=== PATIENT | female | born 1935 | race Caucasian/White ===

== ENCOUNTER 2016-06-24 22:27 | Inpatient (IN) | payer OTHER ==
--- NOTE | 2016-06-24 23:02 | PDOC ---
History of Present Illness - General History Source: Family Exam Limitations: No Limitations - History of Present Illness Initial Comments: 06/24/16 23:48 The patient is a 81 year old female, with significant past medical history of Parkinsons disease, HTN, HLD, who presents today via EMS with her daughter with a facial injury and hematoma on the forehead. The patient fell 2 days ago while sitting at the dinner table. The patient has a right black eye, hematoma on the right forehead, and the right side of the face is swollen. The patient lives at home with her who called the daughter when the patient fell. However, the daughter did not know the severity of the fall until she visited her mother today. She states that the mother is also complaining of some right leg pain. After the fall, the patient has not been mobile, however, the daughter is unsure if this is due to the injury or Parkinson's. Allergies: None reported PCP- <Beatrice Perez - Last Filed: 06/25/16 01:47> <Angel Garcia - Last Filed: 06/25/16 02:41> - General Chief Complaint: Injury Stated Complaint: INJURY Time Seen by Provider: 06/24/16 22:59 Past History <eBatrice Perez - Last Filed: 06/25/16 01:47> - Past Medical History HTN: Yes Hypercholesterolemia: Yes Psychiatric Problems: (PARKINSONS) - Psycho/Social/Smoking Cessation Hx Anxiety: No Suicidal Ideation: No Smoking Status: No Smoking History: Never smoked Number of Cigarettes Smoked Daily: 0 Hx Alcohol Use: No Drug/Substance Use Hx: No Substance Use Type: None Hx Substance Use Treatment: No <Angel Garcia - Last Filed: 06/25/16 02:41> - Past Medical History Allergies/Adverse Reactions: Allergies Allergy/AdvReac Type Severity Reaction Status Date / Time No Known Allergies Allergy Verified 12/15/13 12:25 Home Medications: Ambulatory Orders Lisinopril [Prinivil] 10 mg PO DAILY 08/13/12 Lovastatin 1 tab PO DAILY 08/14/12 Solifenacin Succinate [Vesicare] 10 mg PO DAILY 08/14/12 Acetaminophen [Tylenol .Regular Strength -] 650 mg PO Q6H PRN #0 tablet Carbidopa/Levodopa 10/100 [Sinemet 10/100 -] 1 each PO TID #0 tablet 08/17/12 Mupirocin Cream [Bactroban 2% Cream -] 1 applic TP DAILY 12/15/13 Amoxicillin/Potassium Clav [Augmentin 875-125 Tablet] 1 each PO BID #10 tablet 12/18/13 Review of Systems - Review of Systems Able to Perform ROS?: Yes Comments:: 06/24/16 23:49 CONSTITUTIONAL: No fever, no chills, no fatigue EYES: No visual changes ENT: No ear pain, no sore throat HEAD: + right sided facial swelling, right black eye, hematoma on the forehead. CARDIOVASCULAR: No chest pain, no palpitations RESPIRATORY: No cough, no SOB GI: No abdominal pain, no nausea, no vomiting, no constipation, no diarrhea GENITOURINARY: No dysuria, no frequency, no hematuria MUSKULOSKELETAL: +right leg pain. No backpain, no joint pain, no myalgias SKIN: No rash NEURO: No headache <Beatrice Perez - Last Filed: 06/25/16 01:47> *Physical Exam - Vital Signs Last Vital Signs Temp Pulse Resp BP Pulse Ox 98.7 F 108 H 24 152/68 98 06/24/16 22:42 06/24/16 22:42 06/24/16 22:42 06/24/16 22:42 06/24/16 22:42 <Beatrice Perez - Last Filed: 06/25/16 01:47> - Vital Signs Last Vital Signs Temp Pulse Resp BP Pulse Ox 98.7 F 108 H 24 152/68 98 06/24/16 22:42 06/24/16 22:42 06/24/16 22:42 06/24/16 22:42 06/24/16 22:42 - Physical Exam Comments: 06/25/16 02:39 EXAMINATION CONSTITUTIONAL: Awake and alert, frail-appearing, in mild to moderate distress HEAD: Extensive ecchymosis to the right side of the forehead, face with a 2 cm right frontal hematoma; no crepitus or step-offs EYES: PERRL; EOM intact ENMT: External appears normal; mm-dry NECK: Supple; non-tender; no cervical lymphadenopathy CARD: Normal S1, S2; no murmurs, rubs, or gallops RESP: Normal chest excursion with respiration; breath sounds clear and equal bilaterally; no wheezes, rhonchi, or rales ABD: Soft, non-distended; non-tender; no palpable organomegaly, no palpable hernias PELVIS: stable EXT: No obvious deformity; there is pain on internal and external rotation of the right hip; neurovascularly intact distally bilaterally; gait-unable to bear weight; + rigidity bilaterally to upper and lower extremities SKIN: Warm, dry, no rash NEURO: Awake alert, follows simple commands; gait-deferred. <Angel Garcia - Last Filed: 06/25/16 02:41> ED Treatment Course - LABORATORY CBC & Chemistry Diagram: 06/24/16 23:34 06/24/16 23:34 - RADIOLOGY Radiograph Interpretation: 06/25/16 01:47 Exam: CT cervical spine without contrast Images: [id number] Clinical indication: Status post fall with right-sided hematoma. Findings: Osteopenia and mild spondylosis is noted. The vertebral body heights are maintained. Mild degenerative disc space narrowing is noted at multiple levels. Anatomic alignment of the cervical spine is maintained. No fracture or listhesis is seen. No adenopathy collection or hematoma seen in the soft tissues of the neck. Impression: No fracture or listhesis seen. Exam: Noncontrast CT head Images: 421 Clinical indication: Status post fall with right-sided hematoma. Reformatted coronal and sagittal images were provided. Findings: Multiple axial images were obtained of the brain without contrast. There is no mass-effect, midline shift or hemorrhage. There is no intra-axial or extra-axial fluid collection. Atrophic involutional changes and chronic ischemic periventricular white matter changes are noted. The visualized portions of the paranasal sinuses are clear. The middle ear cavities and mastoids are clear. A right temporal subcutaneous hematoma measures up to 12 mm in depth and 2.5 cm in diameter. No calvarial fractures seen. Impression: No mass effect or intracranial hemorrhage. <Beatrice Perez - Last Filed: 06/25/16 01:47> - LABORATORY CBC & Chemistry Diagram: 06/24/16 23:34 06/24/16 23:34 <Angel Garcia - Last Filed: 06/25/16 02:41> *DC/Admit/Observation/Transfer - Attestations Scribe Attestion: 01/19/17 23:50 Documentation prepared by SRIRAM Lloyd, acting as medical library assistant for Angel Garcia MD. <Beatrice Perez - Last Filed: 06/25/16 01:47> - Discharge Dispostion Admit: Yes - Attestations Physician Attestion: 06/25/16 02:36 The documentation was prepared by the scribe under my direct supervision. I have reviewed the documentation which correctly represents the findings, medical decision-making and critical action taken by me. <Angel Garcia - Last Filed: 06/25/16 02:41> Diagnosis at time of Disposition: Dehydration Acute head trauma Qualifiers: Encounter type: initial encounter Qualified Code(s): S09.90XA - Unspecified injury of head, initial encounter Closed fracture of single pubic ramus of pelvis Qualifiers: Encounter type: initial encounter Laterality: right Qualified Code(s): S32.501A - Unspecified fracture of right pubis, initial encounter for closed fracture - Referrals Referrals: Evan Adorno MD [Primary Care Provider] -
[2016-06-24 23:50] LABS: BASOPHIL 0.3 % (0-2.0); EOSINOPHIL 0.1 % (0-4.5); MCH 30.4 pg (25.7-33.7); MEAN PLT VOLUME 9.3 fl (7.5-11.1); NEUTROPHILS 83.9 % (42.8-82.8); PLATELET COUNT 295 K/MM3 (134-434); RDW 13.1 % (11.6-15.6); WHITE BLOOD COUNT 9.8 K/mm3 (4.0-10.0)
[2016-06-25 00:18] LABS: ALBUMIN 3.7 g/dl (3.4-5.0); ANION GAP 12 (8-16); BILIRUBIN,TOTAL 0.9 mg/dL (0.2-1.0); CO2 29 mmol/L (21-32); CREATININE 0.8 mg/dL (0.55-1.02); GLUCOSE,RANDOM 134 mg/dL (74-106); SGOT/AST 34 U/L (15-37); SGPT/ALT 18 U/L (12-78); TOT PROT 7.5 g/dl (6.4-8.2)
[2016-06-25 00:21] LABS: ALK PHOS 91 U/L (45-117)
[2016-06-25 00:30] LABS: TROPONIN I < 0.02 ng/ml (0.00-0.05)
[2016-06-25 00:43] LABS: INR 1.16 (0.82-1.09); PROTHROMBIN TIME (PATIENT) 12.8 SEC (9.98-11.88)
[2016-06-25] MEDS ORDERED: SODIUM CHLORIDE 500 ML IV STA (01:57)
[2016-06-25] MEDS ORDERED: ACETAMINOPHEN 1000 MG/100 ML VIAL (NON FORMULARY) IVPB ONE (02:10)
--- NOTE | 2016-06-25 02:28 | HP ---
CHIEF COMPLAINT: s/p mechanical fall PCP: Dr. Adorno HISTORY OF PRESENT ILLNESS: Unobtainable from the patient, took history from patients daughter Kat Moctezuma. 81 year old female was brought in to the ED via EMS with facial hematoma and hematoma s/p mechanical fall. As per patients daughter, patient was eating dinner 2 days ago, when her heard a loud sound, and found patient lying on the floor. Patients thinks she hit her face over the stove. She didn' t visit her primary doctor or seek medical attention right away. No h/o LOC, dizziness post fall. Today when patients daughter visited her, saw the ecchymosis on the right side of the face, patient complained of excruciating pain over the right hip, radiating towards the right leg. Daughter called 911 immediately and brought her here. Patient has been frail since 5 years, due to parkinsons disease she has decreased doing her daily activities on her own, needs help to sit/walk. Today, had to help her eat. No H/o intake of aspirin or any blood thinners. At baseline, non conversational, replies to questions asked but speaks very little. Mostly remains drowsy at baseline. On questioning, patient was moaning in pain, hence didn't reply, detailed ROS couldn't be obtained. Lives with her . ER course was notable for: (1) CBC, CMP (2) CXR, Head CT, Hip/Pelvis xray, Cervical CT (3) Recent Travel: None PAST MEDICAL HISTORY: Parkinsons disease, Hypertension, Hyperlipidemia PAST SURGICAL HISTORY: Unknown Social History: Smoking: Never smoked Alcohol: Never took alcohol Drugs: No illicit drug use Family History: Allergies No Known Allergies Allergy (Verified 12/15/13 12:25) HOME MEDICATIONS: Medication Instructions Recorded Lisinopril [Prinivil] 10 mg PO DAILY 08/13/12 Lovastatin 1 tab PO DAILY 08/14/12 Solifenacin Succinate [Vesicare] 10 mg PO DAILY 08/14/12 Acetaminophen [Tylenol .Regular 650 mg PO Q6H PRN #0 tablet 08/17/12 Strength -] Carbidopa/Levodopa [Sinemet 1 each PO TID #0 tablet 08/17/12 -] Mupirocin Cream [Bactroban 2% 1 applic TP DAILY 12/15/13 Cream -] Amoxicillin/Potassium Clav 1 each PO BID #10 tablet 12/18/13 [Augmentin 912-125 Tablet] REVIEW OF SYSTEMS CONSTITUTIONAL: Absent: fever, chills, diaphoresis, generalized weakness, malaise, loss of appetite, weight change HEENT: Absent: rhinorrhea, nasal congestion, throat pain, throat swelling, difficulty swallowing, mouth swelling, ear pain, eye pain, visual changes CARDIOVASCULAR: Absent: chest pain, syncope, palpitations, irregular heart rate, lightheadedness , peripheral edema RESPIRATORY: Absent: cough, shortness of breath, dyspnea with exertion, orthopnea, wheezing, stridor, hemoptysis GASTROINTESTINAL: Absent: abdominal pain, abdominal distension, nausea, vomiting, diarrhea, constipation, melena, hematochezia GENITOURINARY: Absent: dysuria, frequency, urgency, hesitancy, hematuria, flank pain, genital pain MUSCULOSKELETAL: Present: Right hip/leg pain Absent: myalgia, arthralgia, joint swelling, back pain, neck pain SKIN: Absent: rash, itching, pallor HEMATOLOGIC/IMMUNOLOGIC: Absent: easy bleeding, easy bruising, lymphadenopathy, frequent infections ENDOCRINE: Absent: unexplained weight gain, unexplained weight loss, heat intolerance, cold intolerance NEUROLOGIC: Absent: headache, focal weakness or paresthesias, dizziness, unsteady gait, seizure, mental status changes, bladder or bowel incontinence PSYCHIATRIC: Absent: anxiety, depression, suicidal or homicidal ideation, hallucinations. PHYSICAL EXAMINATION Vital Signs - 24 hr 06/24/16 22:42 Temperature 98.7 F Pulse Rate 108 H Respiratory 24 Rate Blood Pressure 152/68 O2 Sat by Pulse 98 Oximetry (%) GENERAL: Thinly built female lying in bed in supine position, confused, disoriented x 3, whining in pain. HEAD: 1.5x 2.5cm round swelling over the right temporal area, dried blood. EYES: Right periocular ecchymotic area, EOM intact, no pallor or icterus. EARS, NOSE, THROAT: Ears normal. Dry mucous membranes. NECK: Normal range of motion, supple. LUNGS: Poor inspiration bilaterally, decreased breath sounds bilaterally, no wheeze or crackles. No accessory muscle use. HEART: Regular rate and rhythm, normal S1 and S2, soft systolic murmur. ABDOMEN: Soft, nontender, not distended, normoactive bowel sounds, no guarding, no rebound, no masses. No hepatomegaly or splenomegaly. MUSCULOSKELETAL: Normal range of motion at all joints. No bony deformities or tenderness. No CVA tenderness. UPPER EXTREMITIES: 2+ pulses, warm, well-perfused. No cyanosis. No clubbing. Cap refill <2 seconds. No peripheral edema. LOWER EXTREMITIES: abrasions over the right patrick, 2+ pulses, warm, well- perfused. No calf tenderness. Slight swelling of lower extremity. NEUROLOGICAL: Normal speech. Gait not observed. PSYCHIATRIC: Cooperative. Poor eye contact. SKIN: Warm, dry, normal turgor, no rashes or lesions noted. Laboratory Results - last 24 hr 06/24/16 06/24/16 06/24/16 23:34 23:34 23:34 WBC 9.8 RBC 3.43 L Hgb 10.4 L Hct 31.6 L MCV 92.0 MCHC 33.0 RDW 13.1 Plt Count 295 MPV 9.3 Neutrophils % 83.9 H D Lymphocytes % 5.5 L D Monocytes % 10.2 Eosinophils % 0.1 D Basophils % 0.3 INR 1.16 H Sodium 141 Potassium 4.5 Chloride 100 Carbon Dioxide 29 D Anion Gap 12 BUN 32 H D Creatinine 0.8 D Creat Clearance w eGFR > 60 Random Glucose 134 H D Calcium 9.0 Total Bilirubin 0.9 D AST 34 D ALT 18 D Alkaline Phosphatase 91 D Creatine Kinase Creatine Kinase Index CK-MB (CK-2) Troponin I Total Protein 7.5 Albumin 3.7 Blood Type Antibody Screen 06/24/16 06/24/16 23:34 23:34 WBC RBC Hgb Hct MCV MCHC RDW Plt Count MPV Neutrophils % Lymphocytes % Monocytes % Eosinophils % Basophils % INR Sodium Potassium Chloride Carbon Dioxide Anion Gap BUN Creatinine Creat Clearance w eGFR Random Glucose Calcium Total Bilirubin AST ALT Alkaline Phosphatase Creatine Kinase 443 H D Creatine Kinase Index 0.5 CK-MB (CK-2) 2.161 Troponin I < 0.02 Total Protein Albumin Blood Type O POSITIVE Antibody Screen Negative ASSESSMENT/PLAN: 81 year old female with significant PMHx of Parkinsons disease, Hypertension, Hyperlipidemia was brought in to the ED via EMS with facial hematoma and hematoma s/p mechanical fall. # Pelvic fracture s/p mechanical fall Had fall 2 days ago In the ED, was given Tylenol for pain and IV fluids Head CT- no hemorrhage (haven't received the official report yet) Hip/Pelvis xray- Right pubic ramus fracture ( please confirm with the official report) Cervical spine CT- report pending CXR- report pending Admitted in Med-Surg IV Morphine 0.5 mg Q3H PRN Umanzor catheter Pelvic stabilization Orthopedics consult # Increased BUN Most likely due to dehydration, patient hasn't been eating or drinking well since few days Gentle hydration IV NS @ 42mls/hr # Parkinsons Disease Sinemet on hold, resume once clearance after swallow evaluation # HTN/HLD Home meds on hold, resume once cleared after swallow evaluation # FEN IV NS @ 42mls/hr Electrolytes to be repeated NPO for now until cleared from swallow eval, R/O aspiration # Prophylaxis For DVT- On Enoxaparin, high risk For GI- Not indicated # Dispo: Duration of stay unknown # Code Status: Discussed about DNR/DNI with patients daughter. As per the daughter, she doesn't want full code, but would like to discuss with patients tomorrow. Illness, Investigation and Plan of care explained to the patient's daughter. She verbalized understanding. Case seen and discussed with Dr. Matias. Visit type - Emergency Visit Emergency Visit: Yes ED Registration Date: 06/25/16 Care time: The patient presented to the Emergency Department on the above date and was hospitalized for further evaluation of their emergent condition. - New Patient This patient is new to me today: Yes Date on this admission: 06/25/16 - Critical Care Critical Care patient: No
[2016-06-25] MEDS ORDERED: ACETAMINOPHEN INJECTION 100 ML IVPB ONE ×2 (02:56→02:58)
--- NOTE | 2016-06-25 03:29 | PN ---
<Berenice Matias - Last Filed: 06/25/16 03:27> Teaching Attending Note Name of Resident: Almita Franco ATTENDING PHYSICIAN STATEMENT I saw and evaluated the patient. I reviewed the resident's note and discussed the case with the resident. I agree with the resident's findings and plan as documented. SUBJECTIVE: OBJECTIVE: ASSESSMENT AND PLAN: <ThomasJuan Manuel - Last Filed: 06/25/16 20:29> Teaching Attending Note ATTENDING PHYSICIAN STATEMENT I saw and evaluated the patient. I reviewed the resident's note and discussed the case with the resident. I agree with the resident's findings and plan as documented. SUBJECTIVE: The patient is a 81 year old female, with significant past medical history of Parkinsons disease, who presented, with her daughter, with a facial injury, hematoma on her forehead, right sided hip pain. The patient fell 2 days ago while sitting at the dinner table and landed on her right side. The patient notes that her right sided hip pain radiates towards her right lower extremity. The patient has a right black eye, hematoma on the right forehead. The patient s daughter notes associated lower right extremity swelling.The patient lives at home with her who called the daughter when the patient fell. However, the daughter did not know the severity of the fall until she visited her mother today. At baseline the patient is not able to ambulate on her own. Past medical history: HTN and HLD. OBJECTIVE: Vital Signs: Last Vital Signs Temp Pulse Resp BP Pulse Ox 98.7 F 108 H 24 152/68 98 06/24/16 22:42 06/24/16 22:42 06/24/16 22:42 06/24/16 22:42 06/24/16 22:42 PE: GENERAL: Cachectic, confused, and disoriented at baseline HEENT: Right periocular ecchymosis. right forehead hematoma and laceration LUNGS: Poor inspiratory effort, clear to auscultation bilaterally HEART: 3/6 systolic ejection murmur. Regular rate and rhythm ABDOMEN: Soft, nontender EXTREMITIES: Trace edema. SKIN: Warm, Dry, normal turgor, no rashes or lesions noted. Labs: CBCD WBC 9.8 K/mm3 (4.0-10.0) 06/24/16 23:34 RBC 3.43 M/mm3 (3.60-5.2) L 06/24/16 23:34 Hgb 10.4 GM/dL (10.7-15.3) L 06/24/16 23:34 Hct 31.6 % (32.4-45.2) L 06/24/16 23:34 MCV 92.0 fl (80-96) 06/24/16 23:34 MCHC 33.0 g/dl (32.0-36.0) 06/24/16 23:34 RDW 13.1 % (11.6-15.6) 06/24/16 23:34 Plt Count 295 K/MM3 (134-434) 06/24/16 23:34 MPV 9.3 fl (7.5-11.1) 06/24/16 23:34 CMP Sodium 141 mmol/L (136-145) 06/24/16 23:34 Potassium 4.5 mmol/L (3.5-5.1) 06/24/16 23:34 Chloride 100 mmol/L (98-107) 06/24/16 23:34 Carbon Dioxide 29 mmol/L (21-32) D 06/24/16 23:34 Anion Gap 12 (8-16) 06/24/16 23:34 BUN 32 mg/dL (7-18) H D 06/24/16 23:34 Creatinine 0.8 mg/dL (0.55-1.02) D 06/24/16 23:34 Creat Clearance w eGFR > 60 (>60) 06/24/16 23:34 Calcium 9.0 mg/dL (8.5-10.1) 06/24/16 23:34 Total Bilirubin 0.9 mg/dL (0.2-1.0) D 06/24/16 23:34 AST 34 U/L (15-37) D 06/24/16 23:34 ALT 18 U/L (12-78) D 06/24/16 23:34 Alkaline Phosphatase 91 U/L (45-117) D 06/24/16 23:34 Total Protein 7.5 g/dl (6.4-8.2) 06/24/16 23:34 Albumin 3.7 g/dl (3.4-5.0) 06/24/16 23:34 Imaging: Exam: CT cervical spine without contrast Findings: Osteopenia and mild spondylosis is noted. The vertebral body heights are maintained. Mild degenerative disc space narrowing is noted at multiple levels. Anatomic alignment of the cervical spine is maintained. No fracture or listhesis is seen. No adenopathy collection or hematoma seen in the soft tissues of the neck. Impression: No fracture or listhesis seen. ASSESSMENT AND PLAN: In summary, Mrs. Moctezuma is a 81 year old female with history of advance Parkinson s disease and at baseline severely decompensatory status, that sustained fall 2 days ago resulting in stable pelvic fracture and head trauma. 1. Pelvic fracture- stable, minimally displaced. -Pain control with IV morphine 0.5mg Q3 as needed -Orthopedic surgery evaluation for clearance - Umanzor catheter - r/o urinary retention 2. Prerenal azotemia/acute injury- a likely secondary to dehydration and decreased PO intake. -Rudolph IV fluid hydration with reassessment of pulmonary exam -Repeat BMP in AM -Obtain urine analysis 3. Parkinsons disease- advanced. Patient appears lethargic and minimally cooperative. - Keep NPO until swallow evaluation clearance 4. DVT PPX - Lovenox subQ Based on patients symptoms upon presentation, evidence of acute renal insufficiency, dehydration, poor functional status, severe pain, need for NPO status due to altered mental status, risk of aspiration, as well as need for IV narcotics, this patient's meets medical necessity for hospitalization with anticipated length of stay beyond two midnights. Admit to inpatient. Documentation prepared by Juan Manuel Guzman, acting as medical technologist chemistry for Dr. Florencio MD.
[2016-06-25 03:35] LABS: URINE APPEARANCE CLEAR; URINE BILIRUBIN NEGATIVE (NEGATIVE); URINE BLOOD NEGATIVE (NEGATIVE); URINE COLOR DKYELLOW; URINE GLUCOSE (UA) NEGATIVE (NEGATIVE); URINE KETONE TRACE (NEGATIVE); URINE LEUK ESTERASE NEGATIVE (NEGATIVE); URINE NITRITE NEGATIVE (NEGATIVE); URINE UROBILINOGEN 2.0 E.U/dl E.U./dl (0.2-1.0)
[2016-06-25 03:45] LABS: URINE PROTEIN 1+ (NEGATIVE)
[2016-06-25 03:46] LABS: URINE HYALINE CAST 8 /lpf; URINE MUCUS MANY; URINE RBC 4 /hpf (0-3); URINE WBC 2 /hpf (3-5)
[2016-06-25] MEDS ORDERED: morphine CARPU-JECT 2 MG/1 ML DISP.SYRIN ONE ×3 (06:55→15:29)
[2016-06-25] MEDS: SODIUM CHLORIDE 1,000 ML IV SCH (06:57)
[2016-06-25] MEDS: morphine CARPU-JECT 4 MG/1 ML DISP.SYRIN IVPUSH PRN ×4 (06:58→18:20)
[2016-06-25 08:51] LABS: MCHC 33.5 g/dl (32.0-36.0); MEAN CELL VOLUME 92.7 fl (80-96); MEAN PLT VOLUME 9.2 fl (7.5-11.1); PLATELET COUNT 232 K/MM3 (134-434); RDW 12.5 % (11.6-15.6); WHITE BLOOD COUNT 8.4 K/mm3 (4.0-10.0)
[2016-06-25 09:11] LABS: CALCIUM 7.7 mg/dL (8.5-10.1); CREATININE 0.6 mg/dL (0.55-1.02)
[2016-06-25 09:15] LABS: ALBUMIN 2.8 g/dl (3.4-5.0); ALK PHOS 71 U/L (45-117); ANION GAP 5 (8-16); BILIRUBIN,TOTAL 0.8 mg/dL (0.2-1.0); CALCIUM 7.8 mg/dL (8.5-10.1); CO2 26 mmol/L (21-32); CREATININE 0.6 mg/dL (0.55-1.02); GLUCOSE,RANDOM 108 mg/dL (74-106); SGOT/AST 25 U/L (15-37); SGPT/ALT 20 U/L (12-78); TOT PROT 5.9 g/dl (6.4-8.2)
--- NOTE | 2016-06-25 10:58 | EKG ---
Test Reason : Blood Pressure : / mmHG Vent. Rate : 098 BPM Atrial Rate : 098 BPM P-R Int : 000 ms QRS Dur : 076 ms QT Int : 324 ms P-R-T Axes : 000 -29 -18 degrees QTc Int : 413 ms POOR DATA QUALITY, INTERPRETATION MAY BE ADVERSELY AFFECTED NORMAL SINUS RHYTHM NONSPECIFIC ST AND T WAVE ABNORMALITY POOR R WAVE PROGRESSION LEFTWARD AXIS Confirmed by BHARATH HUNTER MD ([id number]) on 06/25/2016 10:58:29 AM Referred By: Confirmed By:BHARATH HUNTER MD
[2016-06-25] MEDS: ENOXAPARIN NA (PORCINE) 40 MG/0.4 ML DISP.SYRIN SQ SCH (11:13)
--- NOTE | 2016-06-25 12:38 | CONSULT ---
Admitting History and Physical - Primary Care Physician PCP: Fady Dillard - Admission History of Present Illness: Per EMR note: "81 year old female was brought in to the ED via EMS with facial hematoma and hematoma s/p mechanical fall. As per patients daughter, patient was eating dinner 2 days ago, when her heard a loud sound, and found patient lying on the floor. Patients thinks she hit her face over the stove. She didn' t visit her primary doctor or seek medical attention right away. No h/o LOC, dizziness post fall. Today when patients daughter visited her, saw the ecchymosis on the right side of the face, patient complained of excruciating pain over the right hip, radiating towards the right leg. Daughter called 911 immediately and brought her here. Patient has been frail since 5 years, due to parkinsons disease she has decreased doing her daily activities on her own, needs help to sit/walk. Today, had to help her eat. No H/o intake of aspirin or any blood thinners. At baseline, non conversational, replies to questions asked but speaks very little. Mostly remains drowsy at baseline. On questioning, patient was moaning in pain, hence didn't reply, detailed ROS couldn't be obtained. 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 Impaired speech initiation. Unintelligible speech intermittently, per nusing.) - Speech Production Dysarthria: Yes: Hypokinetic (mild) - Speech Characteristics Voice Loudness: Mildly Soft/Quiet Voice Pitch: Yes: Normal Voice Phonatory-based Quality: Yes: Normal Speech Pattern: Impaired Speech Clarity: < 50% Nasal Resonance: Normal Articulation: Yes: Precise Rate of Speech: Too Fast - Language/Auditory Comprehension Follows: Yes: 1 Stage Simple Commands - Swallow Evaluation/Bedside Assessment Current Nutritional Intake: NPO Oral Secretions: Yes: WFL Dentition: Yes: Missing Teeth Facial Symmetry at Rest: Symmetrical Lingual Movement: Symmetric Laryngeal Movement: Labored,delay initiation Labial Seal: WFL Oral Prep Time: Increased A-P Transit: Impaired Timing of Swallow: Delayed (sometimes absent) Coughing/Throat Clear: No Recommendations - Speech Evaluation, Impression/Plan Impression: Takes only tiny amount of puree off of spoon, astating "no more." Oral holding. Swallow quite delayed, often not triggered without repeated cues to "swallow." - Disposition Discharge to: Custodial Facility - Dysphagia Impressions/Plan Swallowing Skills: Impaired Dysphagia Impressions: Mild Impairment, Moderate Impairment *Silent aspiration: cannot be R/O at bedside Recommendations: Modified Barium Swallow (if cough,congestion), Other (remind pt to swallow with each bite) - Recommendations Diet Consistency: Dysphagia Pureed Medication Administration: Crushed with applesauce Liquids: [place] Thick Supplement: Magic Cup, Other (ensure compact)
--- NOTE | 2016-06-25 13:12 | PN ---
Physical Exam: SUBJECTIVE: Patient seen and examined at bedside in ER along with . He states that she fell 2 days ago and hit her head on stove. Her bruise and swelling over R forehead did not improve and he brought her in today. At the time of fall noted that she had trouble ambulating and he had to help her. She currently does not complain of any pain. History is difficult to obtain from patient. She is AAOX1 (orientated to self only). OBJECTIVE: Vital Signs Temperature 97 F L 06/25/16 09:58 Pulse Rate 88 06/25/16 09:58 Respiratory Rate 18 06/25/16 09:58 Blood Pressure 139/66 06/25/16 09:58 O2 Sat by Pulse Oximetry (%) 98 06/25/16 06:38 GENERAL: The patient is awake, alert, and orientated to self only HEAD: Ecchymosis under R eye. R hematoma over R forehead. EYES: PERRL, sclera anicteric, conjunctiva clear. ENT: Ears normal, nares patent, oropharynx clear without exudates, moist mucous membranes. NECK: Trachea midline, supple. LUNGS: Auscultated anteriorly. Breath sounds equal, clear to auscultation bilaterally, no wheezes, no crackles, no accessory muscle use. HEART: Regular rate and rhythm, S1, S2 without murmur, rub or gallop. ABDOMEN: Soft, nontender, nondistended, normoactive bowel sounds, no guarding, no rebound, no hepatosplenomegaly, no masses. EXTREMITIES: 2+ pulses, warm, well-perfused, no edema. Pain with movement of R leg. Pain with palpation at hip. NEUROLOGICAL: Soft speech, barely audible, strained speaking. gait not observed. SKIN: Warm, dry, normal turgor, lesions as noted above. Laboratory Results - last 24 hr 06/25/16 06/25/16 06/25/16 03:30 08:31 08:31 WBC 8.4 RBC 2.98 L Hgb 9.2 L D Hct 27.6 L MCV 92.7 MCHC 33.5 RDW 12.5 Plt Count 232 D MPV 9.2 Sodium 138 Potassium 3.6 Chloride 107 Carbon Dioxide 26 Anion Gap 5 L BUN 27 H Creatinine 0.6 D Creat Clearance w eGFR > 60 Random Glucose 108 H Calcium 7.8 L Total Bilirubin 0.8 AST 25 D ALT 20 Alkaline Phosphatase 71 D Creatine Kinase Total Protein 5.9 L D Albumin 2.8 L D Urine Color Dkyellow Urine Appearance Clear Urine pH 5.0 D Ur Specific [place] 1.028 Urine Protein 1+ H Urine Glucose (UA) Negative Urine Ketones Trace H Urine Blood Negative Urine Nitrite Negative Urine Bilirubin Negative Urine Urobilinogen 2.0 e.u/dl H Ur Leukocyte Esterase Negative Urine RBC 4 Urine WBC 2 Ur Epithelial Cells Rare Hyaline Casts 8 Urine Mucus Many 06/25/16 08:31 WBC RBC Hgb Hct MCV MCHC RDW Plt Count MPV Sodium 141 Potassium 3.6 Chloride 107 Carbon Dioxide 27 Anion Gap 7 L BUN 26 H Creatinine 0.6 Creat Clearance w eGFR Random Glucose 112 H Calcium 7.7 L Total Bilirubin AST ALT Alkaline Phosphatase Creatine Kinase 311 H D Total Protein Albumin Urine Color Urine Appearance Urine pH Ur Specific [place] Urine Protein Urine Glucose (UA) Urine Ketones Urine Blood Urine Nitrite Urine Bilirubin Urine Urobilinogen Ur Leukocyte Esterase Urine RBC Urine WBC Ur Epithelial Cells Hyaline Casts Urine Mucus Active Medications Generic Name Dose Route Start Last Admin Trade Name Freq PRN Reason Stop Dose Admin Enoxaparin Sodium 40 mg 06/25/16 10:00 06/25/16 11:13 Lovenox - SQ 40 mg DAILY JAMES Administration Sodium Chloride 1,000 mls @ 42 mls/hr 06/25/16 03:15 06/25/16 06:57 Normal Saline - IV 42 mls/hr ASDIR JAMES Administration Morphine Sulfate 0.5 mg 06/25/16 02:59 06/25/16 12:13 Morphine Injection - IVPUSH 0.5 mg Q3H PRN Administration PAIN ASSESSMENT/PLAN: 81 y/o F with significant PMH of Parkinson's, HTN, HLD, brought in 2 days after mechanical fall at home and hitting head on stove. Admitted for pelvic fracture. - Pelvic fracture s/p mechanical fall -Head CT - neg for acute pathology -Hip/Pelvis XR: Displaced frature involving the medial aspect of the superior , inferior pubic rami. No hip dislocation -Ortho consulted -IV morphine for pain control -Pelvic stabilization -CK trending down - WILLIAM (increased BUN) -BUN improving -NS @ 42 ml/hr -monitor - Parkinsons Disease -c/w Sinemet - HTN/HLD -c/w home lisinopril - FEN -IV NS @ 42mls/hr -Dysphagia Puree diet - Prophylaxis -DVT- On Enoxaparin, high risk -For GI- Not indicated - Dispo: Monitor on floors. -Code status: Discuss with Patients . Daughter would like DNR/DNI. Problem List - Problems (1) Acute head trauma Code(s): S09.90XA - UNSPECIFIED INJURY OF HEAD, INITIAL ENCOUNTER Qualifiers: Encounter type: initial encounter Qualified Code(s): S09.90XA - Unspecified injury of head, initial encounter (2) Closed fracture of single pubic ramus of pelvis Code(s): S32.509A - UNSP FRACTURE OF UNSP PUBIS, INIT ENCNTR FOR CLOSED FRACTURE Qualifiers: Encounter type: initial encounter Laterality: right Qualified Code( s): S32.501A - Unspecified fracture of right pubis, initial encounter for closed fracture (3) Dehydration Code(s): E86.0 - DEHYDRATION (4) Dementia Code(s): F03.90 - UNSPECIFIED DEMENTIA WITHOUT BEHAVIORAL DISTURBANCE (5) HTN (hypertension) Code(s): I10 - ESSENTIAL (PRIMARY) HYPERTENSION (6) Parkinson disease Code(s): G20 - PARKINSON'S DISEASE Visit type - Emergency Visit Emergency Visit: Yes ED Registration Date: 06/25/16 Care time: The patient presented to the Emergency Department on the above date and was hospitalized for further evaluation of their emergent condition. - New Patient This patient is new to me today: Yes Date on this admission: 06/25/16 - Critical Care Critical Care patient: No
[2016-06-25] MEDS ORDERED: LOVASTATIN PO SCH (14:30)
--- NOTE | 2016-06-25 14:34 | PN ---
Teaching Attending Note Name of Resident: Missael Styles ATTENDING PHYSICIAN STATEMENT I saw and evaluated the patient. I reviewed the resident's note and discussed the case with the resident. I agree with the resident's findings and plan as documented. SUBJECTIVE: OBJECTIVE: ASSESSMENT AND PLAN: 81 year old woman with Parkinsons disease, Hypertension, Hyperlipidemia admitted after fall with head trauma -fall took place 2 days prior to presentation and brought her in because of severe bruising that developed -CT head negative -has displaced fracture of pelvic rim on right -anticipate no need for surgical intervention but will await orthopedic surgery evaluation -follow up physical therapy eval; states that he would prefer to have patient discharged home where he can care for her himself
[2016-06-25 17:46] VITALS: BMI 14.9
[2016-06-25] MEDS: LISINOPRIL 10 MG TABLET (FP) PO SCH (18:20)
[2016-06-25] MEDS: CARBIDOPA/LEVODOPA 10/100 TABLET (FP) PO SCH ×2 (18:20→21:05)
[2016-06-25] MEDS: MUPIROCIN CA 2% TOPICAL CREAM 15 GM TUBE TP SCH (18:21)
[2016-06-25] MEDS ORDERED: PT OWN MED DRAWER 7, Y5N ONE (20:41)
[2016-06-25] MEDS: morphine CARPU-JECT 2 MG/1 ML DISP.SYRIN IVPUSH PRN (23:48)
[2016-06-26] MEDS: SODIUM CHLORIDE 1,000 ML IV SCH ×2 (04:14→06:31)
[2016-06-26] MEDS: CARBIDOPA/LEVODOPA 10/100 TABLET (FP) PO SCH ×3 (06:02→21:34)
[2016-06-26 08:02] LABS: MEAN CELL VOLUME 91.2 fl (80-96); MEAN PLT VOLUME 8.9 fl (7.5-11.1); PLATELET COUNT 258 K/MM3 (134-434); RDW 12.6 % (11.6-15.6); WHITE BLOOD COUNT 8.8 K/mm3 (4.0-10.0)
[2016-06-26 08:36] LABS: CALCIUM 7.9 mg/dL (8.5-10.1)
[2016-06-26 08:44] LABS: CREATININE 0.7 mg/dL (0.55-1.02)
--- NOTE | 2016-06-26 09:24 | PN ---
Progress Note, Physician - Current Medication List Current Medications: Active Medications Carbidopa/Levodopa (Sinemet 10/100 -) 1 each PO TID [facility] Last Admin: 06/26/16 06:02 Dose: 1 each Enoxaparin Sodium (Lovenox -) 40 mg SQ DAILY [facility] Last Admin: 06/25/16 11:13 Dose: 40 mg Sodium Chloride (Normal Saline -) 1,000 mls @ 42 mls/hr IV ASDIR [facility] Last Admin: 06/26/16 06:31 Dose: 42 mls/hr Lisinopril (Prinivil) 10 mg PO DAILY [facility] Last Admin: 06/25/16 18:20 Dose: 10 mg Morphine Sulfate (Morphine Injection -) 0.5 mg IVPUSH Q3H PRN PRN Reason: PAIN Last Admin: 06/25/16 23:48 Dose: 0.5 mg Mupirocin (Bactroban 2% Cream -) 1 applic TP DAILY [facility] Last Admin: 06/25/16 18:21 Dose: 1 applic Non-Formulary Medication (Lovastatin [Lovastatin]) 1 tab PO DAILY [facility] Solifenacin (Vesicare -) 10 mg PO DAILY [facility] - Objective Vital Signs: Vital Signs Temperature 100.2 F H 06/26/16 06:43 Pulse Rate 99 H 06/26/16 06:43 Respiratory Rate 18 06/26/16 06:43 Blood Pressure 149/68 06/26/16 06:43 O2 Sat by Pulse Oximetry (%) 96 06/25/16 21:00 Constitutional: Yes: Calm, Anxious, Cachectic Eyes: Yes: WNL, Conjunctiva Clear HENT: Yes: WNL, Atraumatic, Normocephalic Neck: Yes: WNL, Supple, Trachea Midline Cardiovascular: Yes: WNL, Regular Rate and Rhythm Respiratory: Yes: WNL, Regular, CTA Bilaterally Gastrointestinal: Yes: WNL, Normal Bowel Sounds Musculoskeletal: Yes: Joint Stiffness (diffuse), Other (pain when moving right thigh) Extremities: Yes: WNL Edema: No Integumentary: Yes: WNL Neurological: Yes: Alert, Aphasia ...Motor Strength: WNL Psychiatric: Yes: WNL Labs: CBC, BMP 06/26/16 06:30 06/26/16 06:30 INR, PTT INR 1.16 (0.82-1.09) H 06/24/16 23:34 Impression/Plan Impression/Plan: 81 year old woman with Parkinsons disease, Hypertension, Hyperlipidemia admitted after fall with head trauma -fall took place 2 days prior to presentation and brought her in because of severe bruising that developed -CT head negative -has displaced fracture of pelvic rim on right -anticipate no need for surgical intervention but will await orthopedic surgery evaluation -follow up physical therapy eval; states that he would prefer to have patient discharged home where he can care for her himself Fever -CXR shows fibrosis unchanged from previous -urine culture negative -follow up blood cultures DVT proph -lovenox 40 Visit type - Emergency Visit Emergency Visit: Yes ED Registration Date: 06/25/16 Care time: The patient presented to the Emergency Department on the above date and was hospitalized for further evaluation of their emergent condition. - New Patient This patient is new to me today: No - Critical Care Critical Care patient: No
[2016-06-26] MEDS: SOLIFENACIN SUCCINATE 5 MG TAB (FP) PO SCH (10:12)
[2016-06-26] MEDS: LISINOPRIL 10 MG TABLET (FP) PO SCH (10:12)
[2016-06-26] MEDS: ENOXAPARIN NA (PORCINE) 40 MG/0.4 ML DISP.SYRIN SQ SCH (10:13)
[2016-06-26] MEDS: MUPIROCIN CA 2% TOPICAL CREAM 15 GM TUBE TP SCH (10:13)
--- NOTE | 2016-06-26 14:15 | CON.ORTH ---
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, Parkinson's Cardio/Vascular: Yes: HTN, Hyperlipdemia - Alcohol/Substance Use Hx Alcohol Use: No - Smoking History Smoking history: Never smoked Aproximately how many cigarettes per day: 0 Home Medications - Allergies Allergies/Adverse Reactions: Allergies Allergy/AdvReac Type Severity Reaction Status Date / Time No Known Allergies Allergy Verified 12/15/13 12:25 - Home Medications Home Medications: Ambulatory Orders Lisinopril [Prinivil] 10 mg PO DAILY 08/13/12 Lovastatin 1 tab PO DAILY 08/14/12 Solifenacin Succinate [Vesicare] 10 mg PO DAILY 08/14/12 Acetaminophen [Tylenol .Regular Strength -] 650 mg PO Q6H PRN #0 tablet Carbidopa/Levodopa 10/100 [Sinemet 10/100 -] 1 each PO TID #0 tablet 08/17/12 Mupirocin Cream [Bactroban 2% Cream -] 1 applic TP DAILY 12/15/13 Amoxicillin/Potassium Clav [Augmentin 875-125 Tablet] 1 each PO BID #10 tablet 12/18/13 Physical Exam for Ortho Vital Signs: Vital Signs Temperature 100.2 F H 06/26/16 06:43 Pulse Rate 99 H 06/26/16 06:43 Respiratory Rate 18 06/26/16 06:43 Blood Pressure 149/68 06/26/16 06:43 O2 Sat by Pulse Oximetry (%) 96 06/25/16 21:00 Constitutional: Yes: No Distress, Cachectic Respiratory: Yes: Regular Extremities: Yes: Other (pain w ROM. limited NV exam due to MS but grossly intact.). No: Deformity, Erythema Labs: CBC, BMP 06/26/16 06:30 06/26/16 06:30 INR, PTT INR 1.16 (0.82-1.09) H 06/24/16 23:34 Imaging - Results X-ray: Report Reviewed, Image Reviewed (R displaced sup/inf ramus fractures.) Problem List - Problems (1) Closed fracture of single pubic ramus of pelvis Code(s): S32.509A - UNSP FRACTURE OF UNSP PUBIS, INIT ENCNTR FOR CLOSED FRACTURE Qualifiers: Encounter type: initial encounter Laterality: right Qualified Code( s): S32.501A - Unspecified fracture of right pubis, initial encounter for closed fracture Assessment/Plan R sided pelvic fractures -patient has significantly displaced fracture -is wbat but will be difficult to mobilize due to pain -if is able to care for at home would benefit from home care for a time -could also consider care in SNF until healed, I believe this is a better option as she will be completely dependent on him for mobilization at first -no indication for surgery -repeat films in 3 weeks as outpt
[2016-06-26] MEDS ORDERED: PT OWN MED DRAWER 7, Y5N ONE (15:16)
[2016-06-27] MEDS: SODIUM CHLORIDE 1,000 ML IV SCH (03:48)
[2016-06-27] MEDS: morphine CARPU-JECT 2 MG/1 ML DISP.SYRIN IVPUSH PRN ×2 (03:51→19:07)
[2016-06-27] MEDS: CARBIDOPA/LEVODOPA 10/100 TABLET (FP) PO SCH ×3 (06:40→22:38)
[2016-06-27] MEDS: ENOXAPARIN NA (PORCINE) 40 MG/0.4 ML DISP.SYRIN SQ SCH (09:32)
[2016-06-27] MEDS: MUPIROCIN CA 2% TOPICAL CREAM 15 GM TUBE TP SCH (09:32)
[2016-06-27] MEDS: LISINOPRIL 10 MG TABLET (FP) PO SCH (09:32)
[2016-06-27] MEDS: SOLIFENACIN SUCCINATE 5 MG TAB (FP) PO SCH (09:32)
[2016-06-27] MEDS ORDERED: PT OWN MED DRAWER 7, Y5N ONE (14:05)
[2016-06-28] MEDS: morphine CARPU-JECT 2 MG/1 ML DISP.SYRIN IVPUSH PRN (02:37)
[2016-06-28] MEDS: SODIUM CHLORIDE 1,000 ML IV SCH ×2 (03:56→18:07)
[2016-06-28] MEDS: CARBIDOPA/LEVODOPA 10/100 TABLET (FP) PO SCH ×3 (06:22→22:26)
--- NOTE | 2016-06-28 10:54 | PN ---
Progress Note, LAW ENFORCEMENT OFFICER - Note Progress Note: Selected Entries 06/27/16 06/27/16 09:46 15:00 Breakfast 100% Lunch 100% Laboratory Tests 06/26/16 06:30 WBC 8.8 Verbal. Dysphonic. Tolerating puree and nectar thick liquid. Pt quite emaciated. Pt definitely benefits from modified diet. Suggest adding Magic cup and ensure compact b/n meals to imcrease nutritional density of intake.
--- NOTE | 2016-06-28 11:09 | PN ---
Teaching Attending Note Name of Resident: Missael Styles ATTENDING PHYSICIAN STATEMENT I saw and evaluated the patient. I reviewed the resident's note and discussed the case with the resident. I agree with the resident's findings and plan as documented. SUBJECTIVE: seen and evaluated at the bedside OBJECTIVE: resting comfortably, more responsive than on admission ASSESSMENT AND PLAN: 81 year old woman with Parkinsons disease, Hypertension, Hyperlipidemia admitted after fall with head trauma -fall took place 2 days prior to presentation and brought her in because of severe bruising that developed -CT head negative -has displaced fracture of pelvic rim on right -anticipate no need for surgical intervention but will await orthopedic surgery evaluation -follow up physical therapy eval; states that he would prefer to have patient discharged home where he can care for her himself Fever -CXR shows fibrosis unchanged from previous -urine culture negative -blood cultures negative DVT proph -lovenox 40
[2016-06-28] MEDS ORDERED: PT OWN MED DRAWER 7, Y5N ONE (11:31)
[2016-06-28] MEDS: SOLIFENACIN SUCCINATE 5 MG TAB (FP) PO SCH (11:35)
[2016-06-28] MEDS: LISINOPRIL 10 MG TABLET (FP) PO SCH (11:35)
[2016-06-28] MEDS: ENOXAPARIN NA (PORCINE) 40 MG/0.4 ML DISP.SYRIN SQ SCH (11:35)
--- NOTE | 2016-06-28 11:46 | PN ---
Physical Exam: SUBJECTIVE: Patient seen and examined at bedside. Pt says she feels ok and has no pains. She denies headache, chest pain, trouble breathing. Pt is AAOX1 (to self). OBJECTIVE: Vital Signs Temperature 98.3 F 06/28/16 08:30 Pulse Rate 71 06/28/16 08:30 Respiratory Rate 18 06/28/16 08:30 Blood Pressure 131/47 06/28/16 08:30 O2 Sat by Pulse Oximetry (%) 95 06/28/16 08:30 GENERAL: The patient is awake, alert, and oriented to self. HEAD: Normal with no signs of trauma. EYES: sclera anicteric, conjunctiva clear. No ptosis. ENT: Ears normal, nares patent, oropharynx clear without exudates, moist mucous membranes. NECK: Trachea midline, full range of motion, supple. LUNGS: Auscultated anteriorly. Breath sounds equal, clear to auscultation bilaterally, no wheezes, no crackles, no accessory muscle use. HEART: Regular rate and rhythm, S1, S2 without murmur, rub or gallop. ABDOMEN: Soft, thin, nontender, nondistended, normoactive bowel sounds, no guarding, no rebound, no hepatosplenomegaly, no masses. EXTREMITIES: 2+ pulses, warm, well-perfused, no edema. NEUROLOGICAL: Normal speech, gait not observed. PSYCH: Dementia. SKIN: Warm, dry, normal turgor, Active Medications Generic Name Dose Route Start Last Admin Trade Name Freq PRN Reason Stop Dose Admin Carbidopa/Levodopa 1 each 06/25/16 15:45 06/28/16 06:22 Sinemet 10/100 - PO 1 each TID JAMES Administration Enoxaparin Sodium 40 mg 06/25/16 10:00 06/27/16 09:32 Lovenox - SQ 40 mg DAILY JAMES Administration Sodium Chloride 1,000 mls @ 42 mls/hr 06/25/16 03:15 06/28/16 03:56 Normal Saline - IV Not Given ASDIR JAMES Lisinopril 10 mg 06/25/16 15:45 06/27/16 09:32 Prinivil PO 10 mg DAILY JAMES Administration Morphine Sulfate 0.5 mg 06/25/16 23:40 06/28/16 02:37 Morphine Injection - IVPUSH 0.5 mg Q3H PRN Administration PAIN Mupirocin 1 applic 06/25/16 15:45 06/27/16 09:32 Bactroban 2% Cream - TP 1 applic DAILY JAMES Administration Non-Formulary Medication 1 tab 06/25/16 14:30 Lovastatin [Lovastatin] PO DAILY JAMES Solifenacin 10 mg 06/26/16 10:00 06/27/16 09:32 Vesicare - PO 10 mg DAILY JAMES Administration ASSESSMENT/PLAN: 81 y/o F with significant PMH of Parkinson's, HTN, HLD, brought in 2 days after mechanical fall at home and hitting head on stove. Admitted for pelvic fracture. - Pelvic fracture s/p mechanical fall -Head CT - neg for acute pathology -R hip pelvic rim displaced fracture -Ortho - no surgery, PT necessary. -IV morphine for pain control -Pelvic stabilization -CK trending down - WILLIAM (increased BUN) -BUN improving -NS @ 42 ml/hr -monitor - Fevers -afebrile for 24+ hours. - Parkinsons Disease -c/w Sinemet - HTN/HLD -c/w home lisinopril - FEN -IV NS @ 42mls/hr -Dysphagia Puree diet - Prophylaxis -DVT- On Enoxaparin, high risk -For GI- Not indicated - Dispo: Pt awaiting placement at SNF. -Code status: Discuss with Patients . Daughter would like DNR/DNI. Problem List - Problems (1) Acute head trauma Code(s): S09.90XA - UNSPECIFIED INJURY OF HEAD, INITIAL ENCOUNTER Qualifiers: Encounter type: initial encounter Qualified Code(s): S09.90XA - Unspecified injury of head, initial encounter (2) Closed fracture of single pubic ramus of pelvis Code(s): S32.509A - UNSP FRACTURE OF UNSP PUBIS, INIT ENCNTR FOR CLOSED FRACTURE Qualifiers: Encounter type: initial encounter Laterality: right Qualified Code( s): S32.501A - Unspecified fracture of right pubis, initial encounter for closed fracture (3) Dehydration Code(s): E86.0 - DEHYDRATION (4) Dementia Code(s): F03.90 - UNSPECIFIED DEMENTIA WITHOUT BEHAVIORAL DISTURBANCE (5) HTN (hypertension) Code(s): I10 - ESSENTIAL (PRIMARY) HYPERTENSION (6) Parkinson disease Code(s): G20 - PARKINSON'S DISEASE Visit type - Emergency Visit Emergency Visit: Yes ED Registration Date: 06/25/16 Care time: The patient presented to the Emergency Department on the above date and was hospitalized for further evaluation of their emergent condition. - New Patient This patient is new to me today: No - Critical Care Critical Care patient: No
[2016-06-28] MEDS: MUPIROCIN CA 2% TOPICAL CREAM 15 GM TUBE TP SCH (12:00)
[2016-06-29] MEDS: CARBIDOPA/LEVODOPA 10/100 TABLET (FP) PO SCH ×3 (05:58→21:22)
[2016-06-29 07:35] LABS: MCHC 33.8 g/dl (32.0-36.0); MEAN CELL VOLUME 91.8 fl (80-96); MEAN PLT VOLUME 8.3 fl (7.5-11.1); PLATELET COUNT 339 K/MM3 (134-434); RDW 12.6 % (11.6-15.6); WHITE BLOOD COUNT 5.4 K/mm3 (4.0-10.0)
[2016-06-29 08:13] LABS: CALCIUM 7.8 mg/dL (8.5-10.1); CREATININE 0.6 mg/dL (0.55-1.02)
[2016-06-29] MEDS: LISINOPRIL 10 MG TABLET (FP) PO SCH (10:37)
[2016-06-29] MEDS: SOLIFENACIN SUCCINATE 5 MG TAB (FP) PO SCH (10:37)
[2016-06-29] MEDS: ENOXAPARIN NA (PORCINE) 40 MG/0.4 ML DISP.SYRIN SQ SCH (10:37)
[2016-06-29] MEDS: MUPIROCIN CA 2% TOPICAL CREAM 15 GM TUBE TP SCH (10:38)
--- NOTE | 2016-06-29 13:34 | PN ---
Progress Note, OBGYN SPECIALIST - Note Progress Note: Selected Entries 06/27/16 06/27/16 09:46 15:00 Breakfast 100% Lunch 100% Laboratory Tests 06/26/16 06:30 WBC 8.8 Selected Entries 06/28/16 06/28/16 06/28/16 06:50 08:30 14:13 Breakfast 75% Lunch 50% Supper Temperature 97.8 F 98.3 F 98.1 F 06/28/16 06/28/16 06/29/16 16:20 18:30 07:07 Breakfast Lunch Supper 25% Temperature 97.3 F L 97.9 F 06/29/16 11:17 Breakfast 75% Lunch Supper Temperature Laboratory Tests 06/26/16 06/29/16 06:30 06:00 WBC 8.8 5.4 D Verbal. Dysphonic. Tolerating puree and nectar thick liquid. Pt quite emaciated. Pt definitely benefits from modified diet. Suggest adding Magic cup and ensure compact b/n meals to imcrease nutritional density of intake.
[2016-06-29] MEDS ORDERED: OXYCODONE/APAP 5/325MG COMBO TABLET PO PRN ×2 (13:37→14:29)
[2016-06-29] MEDS ORDERED: oxyCODONE HCL 5 MG TABLET PO PRN (13:51)
[2016-06-29] MEDS ORDERED: ACETAMINOPHEN 325 MG TABLET (FP) PO PRN (13:51)
[2016-06-29] MEDS ORDERED: PT OWN MED DRAWER 7, Y5N ONE (14:48)
[2016-06-29] MEDS: SENNOSIDES 8.6MG TABLET (FP) PO SCH ×2 (15:05→21:21)
[2016-06-29] MEDS: oxyCODONE HCL 5 MG TABLET PO PRN ×2 (15:05→21:22)
[2016-06-29] MEDS: ACETAMINOPHEN 325 MG TABLET (FP) PO PRN ×2 (15:06→21:21)
--- NOTE | 2016-06-29 15:32 | PN ---
Teaching Attending Note Name of Resident: Missael Styles ATTENDING PHYSICIAN STATEMENT I saw and evaluated the patient. I reviewed the resident's note and discussed the case with the resident. I agree with the resident's findings and plan as documented. SUBJECTIVE:resting comfortable. denies any complaints OBJECTIVE: Last Vital Signs Temp Pulse Resp BP Pulse Ox 98.3 F 95 H 18 101/58 95 06/29/16 14:51 06/29/16 14:51 06/29/16 14:51 06/29/16 14:51 06/28/16 21:00 General NAD ASSESSMENT AND PLAN: 81 year old woman with Parkinsons disease, Hypertension, Hyperlipidemia presented to the ER and was admitted for further evaluation of their emergent condition 1. L pelvic fracture- s/p mechanical fall. evalauted by ortho with no surgical intervention at this time. medical management with pain control and PT. pain appears to be controlled. d/c IV morphine, will add percocet prn pain. PT as instructed by ortho plan is for d/c to SNF, awaiting authorization
--- NOTE | 2016-06-29 16:24 | PN ---
Physical Exam: SUBJECTIVE: Patient seen and examined at bedside. Pt has no complaints. Denies CP, trouble breathing, abd pain. Is AAOx1 (to self only). OBJECTIVE: Vital Signs Temperature 98.3 F 06/29/16 14:51 Pulse Rate 95 H 06/29/16 14:51 Respiratory Rate 18 06/29/16 14:51 Blood Pressure 101/58 06/29/16 14:51 O2 Sat by Pulse Oximetry (%) 95 06/28/16 21:00 GENERAL: The patient is awake, alert, and oriented to self. HEAD: R forehead hematoma, ecchymosis under R eye. EYES: sclera anicteric, conjunctiva clear. No ptosis. ENT: Ears normal, nares patent, oropharynx clear without exudates, moist mucous membranes. NECK: Trachea midline, full range of motion, supple. LUNGS: Auscultated anteriorly. Breath sounds equal, clear to auscultation bilaterally, no wheezes, no crackles, no accessory muscle use. HEART: Regular rate and rhythm, S1, S2 without murmur, rub or gallop. ABDOMEN: Soft, thin, nontender, nondistended, normoactive bowel sounds, no guarding, no rebound, no hepatosplenomegaly, no masses. EXTREMITIES: 2+ pulses, warm, well-perfused, no edema. NEUROLOGICAL: Normal speech, gait not observed. PSYCH: Dementia. SKIN: Warm, dry, normal turgor Laboratory Results - last 24 hr 06/29/16 06/29/16 06:00 06:00 WBC 5.4 D RBC 2.90 L Hgb 9.0 L Hct 26.6 L MCV 91.8 MCHC 33.8 RDW 12.6 Plt Count 339 D MPV 8.3 Sodium 142 Potassium 3.8 Chloride 107 Carbon Dioxide 29 Anion Gap 6 L BUN 22 H Creatinine 0.6 Random Glucose 113 H D Calcium 7.8 L Microbiology 06/26/16 10:15 Blood - Peripheral Venous Blood Culture - Preliminary NO GROWTH OBTAINED AFTER 72 HOURS, INCUBATION TO CONTINUE FOR 2 DAYS. 06/26/16 10:15 Blood - Peripheral Venous Blood Culture - Preliminary NO GROWTH OBTAINED AFTER 72 HOURS, INCUBATION TO CONTINUE FOR 2 DAYS. 06/25/16 03:30 Urine - Urine - Catheterized Urine Culture - Final NO GROWTH OBTAINED Active Medications Generic Name Dose Route Start Last Admin Trade Name Freq PRN Reason Stop Dose Admin Acetaminophen 325 mg 06/29/16 14:46 06/29/16 15:06 Tylenol - PO 325 mg Q6H PRN Administration PAIN Carbidopa/Levodopa 1 each 06/25/16 15:45 06/29/16 15:05 Sinemet 10/100 - PO 1 each TID JAMES Administration Enoxaparin Sodium 40 mg 06/25/16 10:00 06/29/16 10:37 Lovenox - SQ 40 mg DAILY JAMES Administration Lisinopril 10 mg 06/25/16 15:45 06/29/16 10:37 Prinivil PO 10 mg DAILY JAMES Administration Morphine Sulfate 0.5 mg 06/25/16 23:40 06/28/16 02:37 Morphine Injection - IVPUSH 0.5 mg Q3H PRN Administration PAIN Mupirocin 1 applic 06/25/16 15:45 06/29/16 10:38 Bactroban 2% Cream - TP 1 applic DAILY JAMES Administration Non-Formulary Medication 1 tab 06/25/16 14:30 Lovastatin [Lovastatin] PO DAILY JAMES Oxycodone HCl 5 mg 06/29/16 14:46 06/29/16 15:05 Roxicodone - PO 5 mg Q6H PRN Administration PAIN Senna 1 tab 06/29/16 13:45 06/29/16 15:05 Senna - PO 1 tab BID JAMES Administration Solifenacin 10 mg 06/26/16 10:00 06/29/16 10:37 Vesicare - PO 10 mg DAILY JAMES Administration ASSESSMENT/PLAN: 81 y/o F with significant PMH of Parkinson's, HTN, HLD, brought in 2 days after mechanical fall at home and hitting head on stove. Admitted for pelvic fracture. - Pelvic fracture s/p mechanical fall -Head CT - neg for acute pathology -R hip pelvic rim displaced fracture -Ortho - no surgery, PT necessary. -IV morphine 0.5mg IV q3h PRN, percocet 5/325 q6h prn for pain control -Pelvic stabilization -CK trending down - WILLIAM (increased BUN) -BUN improving -NS @ 42 ml/hr -monitor - Fevers -afebrile for 24+ hours. - Parkinsons Disease -c/w Sinemet - HTN/HLD -c/w home lisinopril - FEN -IV NS @ 42mls/hr -Dysphagia Puree diet + magic cup, ensure - Prophylaxis -DVT- On Enoxaparin -For GI- Not indicated - Dispo: Pt awaiting placement at SNF. -Code status: DNR/DNI Problem List - Problems (1) Acute head trauma Code(s): S09.90XA - UNSPECIFIED INJURY OF HEAD, INITIAL ENCOUNTER Qualifiers: Encounter type: initial encounter Qualified Code(s): S09.90XA - Unspecified injury of head, initial encounter (2) Closed fracture of single pubic ramus of pelvis Code(s): S32.509A - UNSP FRACTURE OF UNSP PUBIS, INIT ENCNTR FOR CLOSED FRACTURE Qualifiers: Encounter type: initial encounter Laterality: right Qualified Code( s): S32.501A - Unspecified fracture of right pubis, initial encounter for closed fracture (3) Dehydration Code(s): E86.0 - DEHYDRATION (4) Dementia Code(s): F03.90 - UNSPECIFIED DEMENTIA WITHOUT BEHAVIORAL DISTURBANCE (5) HTN (hypertension) Code(s): I10 - ESSENTIAL (PRIMARY) HYPERTENSION (6) Parkinson disease Code(s): G20 - PARKINSON'S DISEASE Visit type - Emergency Visit Emergency Visit: Yes ED Registration Date: 06/25/16 Care time: The patient presented to the Emergency Department on the above date and was hospitalized for further evaluation of their emergent condition. - New Patient This patient is new to me today: No - Critical Care Critical Care patient: No
[2016-06-30] MEDS: CARBIDOPA/LEVODOPA 10/100 TABLET (FP) PO SCH ×3 (05:06→21:52)
[2016-06-30] MEDS: oxyCODONE HCL 5 MG TABLET PO PRN ×2 (05:06→11:12)
[2016-06-30] MEDS: ACETAMINOPHEN 325 MG TABLET (FP) PO PRN ×2 (05:07→11:12)
[2016-06-30 10:02] LABS: CALCIUM 8.5 mg/dL (8.5-10.1); CREATININE 0.8 mg/dL (0.55-1.02)
--- NOTE | 2016-06-30 10:55 | PN ---
Physical Exam: SUBJECTIVE: Patient seen and examined at bedside. Pt is AAOX1 (to self only). Pt denies any pain, CP, trouble breathing , abd pain. I was informed by the nurse that she did not have a BM today and had hard stool yesterday. OBJECTIVE: Vital Signs Temperature 97.5 F L 06/30/16 06:44 Pulse Rate 101 H 06/30/16 06:44 Respiratory Rate 20 06/30/16 06:44 Blood Pressure 152/92 06/30/16 06:44 O2 Sat by Pulse Oximetry (%) 100 06/29/16 09:00 GENERAL: The patient is awake, alert, and oriented to self. HEAD: Normal with no signs of trauma. EYES: sclera anicteric, conjunctiva clear. No ptosis. ENT: Ears normal, nares patent, oropharynx clear without exudates, moist mucous membranes. NECK: Trachea midline, full range of motion, supple. LUNGS: Auscultated anteriorly. Breath sounds equal, clear to auscultation bilaterally, no wheezes, no crackles, no accessory muscle use. HEART: Regular rate and rhythm, S1, S2 without murmur, rub or gallop. ABDOMEN: Soft, thin, distended, normoactive bowel sounds, no guarding, no rebound, no hepatosplenomegaly, no masses. RLQ palpation causes pt to start moaning in what looks like pain. EXTREMITIES: 2+ pulses, warm, well-perfused, no edema. NEUROLOGICAL: Normal speech, gait not observed. PSYCH: Dementia. SKIN: Warm, dry, normal turgor, Laboratory Results - last 24 hr 06/30/16 07:00 Sodium 143 Potassium 4.4 Chloride 107 Carbon Dioxide 26 Anion Gap 10 BUN 23 H Creatinine 0.8 D Random Glucose 97 Calcium 8.5 Creatine Kinase 131 Microbiology 06/26/16 10:15 Blood - Peripheral Venous Blood Culture - Preliminary NO GROWTH OBTAINED AFTER 96 HOURS, INCUBATION TO CONTINUE FOR 1 DAYS. 06/26/16 10:15 Blood - Peripheral Venous Blood Culture - Preliminary NO GROWTH OBTAINED AFTER 96 HOURS, INCUBATION TO CONTINUE FOR 1 DAYS. 06/25/16 03:30 Urine - Urine - Catheterized Urine Culture - Final NO GROWTH OBTAINED Active Medications Generic Name Dose Route Start Last Admin Trade Name Freq PRN Reason Stop Dose Admin Acetaminophen 325 mg 06/29/16 14:46 06/30/16 05:07 Tylenol - PO 325 mg Q6H PRN Administration PAIN Carbidopa/Levodopa 1 each 06/25/16 15:45 06/30/16 05:06 Sinemet 10/100 - PO 1 each TID JAMES Administration Enoxaparin Sodium 40 mg 06/25/16 10:00 06/29/16 10:37 Lovenox - SQ 40 mg DAILY JAMES Administration Lisinopril 10 mg 06/25/16 15:45 06/29/16 10:37 Prinivil PO 10 mg DAILY JAMES Administration Morphine Sulfate 0.5 mg 06/25/16 23:40 06/28/16 02:37 Morphine Injection - IVPUSH 0.5 mg Q3H PRN Administration PAIN Mupirocin 1 applic 06/25/16 15:45 06/29/16 10:38 Bactroban 2% Cream - TP 1 applic DAILY JAMES Administration Non-Formulary Medication 1 tab 06/25/16 14:30 Lovastatin [Lovastatin] PO DAILY JAMES Oxycodone HCl 5 mg 06/29/16 14:46 06/30/16 05:06 Roxicodone - PO 5 mg Q6H PRN Administration PAIN Senna 1 tab 06/29/16 13:45 06/29/16 21:21 Senna - PO 1 tab BID JAMES Administration Solifenacin 10 mg 06/26/16 10:00 06/29/16 10:37 Vesicare - PO 10 mg DAILY JAMES Administration ASSESSMENT/PLAN: 81 y/o F with significant PMH of Parkinson's, HTN, HLD, brought in 2 days after mechanical fall at home and hitting head on stove. Admitted for pelvic fracture. - Pelvic fracture s/p mechanical fall -Head CT - neg for acute pathology -R hip pelvic rim displaced fracture -Ortho - no surgery, PT necessary. -IV morphine 0.5mg IV q3h PRN, percocet 5/325 q6h prn for pain control -Pelvic stabilization -CK trending down -Distended abdomen w/RLQ pain -KUB FUA portable ordered -may be secondary to fracture vs constipation -abdomen is soft despite being distended - WILLIAM (increased BUN) -BUN improved, looks to be at baseline - Parkinsons Disease -c/w Sinemet - HTN/HLD -c/w home lisinopril - FEN -Dysphagia Puree diet + magic cup, ensure - Prophylaxis -DVT- On Enoxaparin -For GI- Not indicated - Dispo: Pt awaiting placement at SNF. -Code status: DNR/DNI Problem List - Problems (1) Acute head trauma Code(s): S09.90XA - UNSPECIFIED INJURY OF HEAD, INITIAL ENCOUNTER Qualifiers: Encounter type: initial encounter Qualified Code(s): S09.90XA - Unspecified injury of head, initial encounter (2) Closed fracture of single pubic ramus of pelvis Code(s): S32.509A - UNSP FRACTURE OF UNSP PUBIS, INIT ENCNTR FOR CLOSED FRACTURE Qualifiers: Encounter type: initial encounter Laterality: right Qualified Code( s): S32.501A - Unspecified fracture of right pubis, initial encounter for closed fracture (3) Dehydration Code(s): E86.0 - DEHYDRATION (4) Dementia Code(s): F03.90 - UNSPECIFIED DEMENTIA WITHOUT BEHAVIORAL DISTURBANCE (5) HTN (hypertension) Code(s): I10 - ESSENTIAL (PRIMARY) HYPERTENSION (6) Parkinson disease Code(s): G20 - PARKINSON'S DISEASE Visit type - Emergency Visit Emergency Visit: Yes ED Registration Date: 06/25/16 Care time: The patient presented to the Emergency Department on the above date and was hospitalized for further evaluation of their emergent condition. - New Patient This patient is new to me today: No - Critical Care Critical Care patient: No
[2016-06-30] MEDS: ENOXAPARIN NA (PORCINE) 40 MG/0.4 ML DISP.SYRIN SQ SCH (11:11)
[2016-06-30] MEDS: SOLIFENACIN SUCCINATE 5 MG TAB (FP) PO SCH (11:11)
[2016-06-30] MEDS: SENNOSIDES 8.6MG TABLET (FP) PO SCH ×2 (11:11→21:48)
[2016-06-30] MEDS: LISINOPRIL 10 MG TABLET (FP) PO SCH (11:11)
[2016-06-30] MEDS: MUPIROCIN CA 2% TOPICAL CREAM 15 GM TUBE TP SCH (11:12)
--- NOTE | 2016-06-30 13:07 | PN ---
Teaching Attending Note Name of Resident: Missael Styles ATTENDING PHYSICIAN STATEMENT I saw and evaluated the patient. I reviewed the resident's note and discussed the case with the resident. I agree with the resident's findings and plan as documented. SUBJECTIVE:denies any complaints, however reported by RN that she seemed in pain earlier today when moving her OBJECTIVE: Last Vital Signs Temp Pulse Resp BP Pulse Ox 97.5 F L 101 H 20 152/92 100 06/30/16 06:44 06/30/16 06:44 06/30/16 06:44 06/30/16 06:44 06/29/16 09:00 General NAD, cachetic Abdomen LLQ and RLQ tenderness, mild distention. normoactive BS ASSESSMENT AND PLAN: 81 year old woman with Parkinsons disease, Hypertension, Hyperlipidemia presented to the ER and was admitted for further evaluation of their emergent condition 1. L pelvic fracture- s/p mechanical fall. evaluated by ortho with no surgical intervention at this time. medical management with pain control and PT. 2. Abdominal pain- AXR showing fecal retention and constipation. will start milk of magnesia RTC and monitor for BM. on stool softeners 3. tachycardia- possible pain induced. will instruct RN to give pain medications prior to PT and movement. encouraged pt to request pain medications if needed 4. Malnutrition- started on magic cup and ensure. encourage po intake. dietary consult 5. HTN- controlled on lisinopril 6. Parkinsons- stable. cont sinemet 7. DVT ppx- lovenox 8. plan is for d/c to SNF, awaiting authorization
[2016-06-30] MEDS ORDERED: PT OWN MED DRAWER 7, Y5N ONE ×3 (15:12→21:50)
[2016-06-30] MEDS: MAGNESIUM HYDROX 2400MG/30ML ORAL SUSPENSION 30 ML CUP PO SCH ×2 (15:48→21:47)
[2016-07-01] MEDS: CARBIDOPA/LEVODOPA 10/100 TABLET (FP) PO SCH ×2 (06:28→14:13)
[2016-07-01] MEDS: MAGNESIUM HYDROX 2400MG/30ML ORAL SUSPENSION 30 ML CUP PO SCH ×2 (06:28→14:13)
[2016-07-01 06:31] VITALS: TEMP 98.6
[2016-07-01] MEDS ORDERED: SODIUM CHLORIDE 1,000 ML IV SCH (08:15)
[2016-07-01] MEDS: ENOXAPARIN NA (PORCINE) 40 MG/0.4 ML DISP.SYRIN SQ SCH (10:00)
[2016-07-01] MEDS: SENNOSIDES 8.6MG TABLET (FP) PO SCH (10:00)
[2016-07-01] MEDS: LISINOPRIL 10 MG TABLET (FP) PO SCH (10:00)
[2016-07-01] MEDS: SOLIFENACIN SUCCINATE 5 MG TAB (FP) PO SCH (10:00)
[2016-07-01] MEDS: MUPIROCIN CA 2% TOPICAL CREAM 15 GM TUBE TP SCH (10:01)
[2016-07-01] MEDS: oxyCODONE HCL 5 MG TABLET PO PRN (11:04)
[2016-07-01] MEDS: ACETAMINOPHEN 325 MG TABLET (FP) PO PRN (11:04)
[2016-07-01 12:08] VITALS: BP 162/89; PULSE 111
[2016-07-01] MEDS ORDERED: ACETAMINOPHEN 325 MG TABLET (FP) PO SCH (12:15)
--- NOTE | 2016-07-01 13:20 | PN ---
Teaching Attending Note Name of Resident: Missael Styles ATTENDING PHYSICIAN STATEMENT I saw and evaluated the patient. I reviewed the resident's note and discussed the case with the resident. I agree with the resident's findings and plan as documented. SUBJECTIVE:currently asymptomatic. appears to be more alert today. c/o mild tenderness around R eye OBJECTIVE: Last Vital Signs Temp Pulse Resp BP Pulse Ox 98.6 F 111 H 18 162/89 96 07/01/16 09:00 07/01/16 09:00 07/01/16 09:00 07/01/16 09:00 07/01/16 09:00 General NAD, cachetic, ecchymosis surrounding R eye present on admission, Abdomen LLQ and RLQ tenderness, mild distention. normoactive BS ASSESSMENT AND PLAN: 81 year old woman with Parkinsons disease, Hypertension, Hyperlipidemia presented to the ER and was admitted for further evaluation of their emergent condition 1. L pelvic fracture- s/p mechanical fall. evaluated by ortho with no surgical intervention at this time. medical management with pain control and PT. 2. Abdominal pain- no tenderness. started on milk of mangesmia and stool softeners. monitor 3. tachycardia- possible pain induced. will instruct RN to give pain medications prior to PT and movement. encouraged pt to request pain medications if needed 4. Severe Malnutrition- magic cup and ensure. encourage po intake. dietary consult. will need to consider appetite stimulant if intake doesnt improve 5. HTN- controlled on lisinopril 6. Parkinsons- stable. cont sinemet 7. DVT ppx- lovenox 8. plan is for d/c to SNF, awaiting authorization
[2016-07-01] MEDS ORDERED: PT OWN MED DRAWER 7, Y5N ONE (14:12)
--- NOTE | 2016-07-01 17:19 | DS ---
Physical Exam: SUBJECTIVE: Patient seen and examined at bedside. Pt did c/o headache today. Otherwise she denied CP, SOB. Other history was difficult to obtain due to dementia. OBJECTIVE: Vital Signs Temperature 98.6 F 07/01/16 09:00 Pulse Rate 111 H 07/01/16 09:00 Respiratory Rate 18 07/01/16 09:00 Blood Pressure 162/89 07/01/16 09:00 O2 Sat by Pulse Oximetry (%) 96 07/01/16 09:00 PHYSICAL EXAM GENERAL: The patient is awake, alert, and oriented to self. HEAD: R forehead hematoma. EYES: sclera anicteric, conjunctiva clear. No ptosis. ENT: Ears normal, nares patent, oropharynx clear without exudates, moist mucous membranes. NECK: Trachea midline, full range of motion, supple. LUNGS: Auscultated anteriorly. Breath sounds equal, clear to auscultation bilaterally, no wheezes, no crackles, no accessory muscle use. HEART: Regular rate and rhythm, S1, S2 without murmur, rub or gallop. ABDOMEN: Soft, thin, distended, normoactive bowel sounds, no guarding, no rebound, no hepatosplenomegaly, no masses. RLQ palpation causes pt to start moaning in what looks like pain. EXTREMITIES: 2+ pulses, warm, well-perfused, no edema. NEUROLOGICAL: Normal speech, gait not observed. PSYCH: Dementia. SKIN: Warm, dry, normal turgor LABS Laboratory Results - last 24 hr 07/01/16 12:25 POC Glucometer 117 HOSPITAL COURSE: Date of Admission:06/25/16 Date of Discharge: 07/01/16 81 y/o F with hx of alzheimers was brought to ER after falling 2 days prior to coming into ER. She had hit her head on kitchen stove at the time. As per pt' s pt was in pain and was unable to ambulate (although she does not ambulate much at baseline) because she was in pain after the fall. CT head was done which was negative. EKG showed NSR. Hip/Pelvis Xr showed displaced fracture of the R superior, inferior pubic rami. Ortho was consulted and recommended PT instead of surgery. Pt's agreed to SNF for rehab and was kept in hospital until bed was found. She had hard stool during stay and distended abdomen and xray of abdomen fua was done which showed large amounts of fecal retention w/o obstruction. pt was given milk of magnesia to help with BM. Pt was dischaged with instructions for SNF to continue pain control with percocet. Minutes to complete discharge: 35 Discharge Summary Reason For Visit: ACUTE HEAD TRAUMA, DEHYDRATION Current Active Problems Acute head trauma (Acute) Closed fracture of single pubic ramus of pelvis (Acute) Dehydration (Acute) Dementia (Chronic) HTN (hypertension) (Chronic) Parkinson disease (Chronic) Condition: Improved - Instructions Diet, Activity, Other Instructions: Please follow up with your primary care physician in 1 week. You will continue your home medications as they were prescribed to you before coming to the hospital. You will require physical therapy to help gain back strength in your leg after your bone fracture. If you develop fevers, chills, or a change in mental status is noted please come to the ER. Referrals: Evan Adorno MD [Primary Care Provider] - 1 Week Disposition: [facility] - Home Medications Comprehensive Discharge Medication List: Ambulatory Orders Lisinopril [Prinivil] 10 mg PO DAILY 08/13/12 Lovastatin 1 tab PO DAILY 08/14/12 Solifenacin Succinate [Vesicare] 10 mg PO DAILY 08/14/12 Acetaminophen [Tylenol .Regular Strength -] 650 mg PO Q6H PRN #0 tablet Carbidopa/Levodopa 10/100 [Sinemet 10/100 -] 1 each PO TID #0 tablet 08/17/12 Mupirocin Cream [Bactroban 2% Cream -] 1 applic TP DAILY 12/15/13 Acetaminophen [Tylenol .Regular Strength -] 325 mg PO Q6H PRN #0 tablet Magnesium Hydrox 2400MG/30Ml [Milk of Magnesia -] 30 ml PO Q8H cup 07/01/16 Oxycodone HCl [Roxicodone -] 5 mg PO Q6H PRN #0 tablet MDD 20 mg 07/01/16 Sennosides [Senna -] 1 tab PO BID tablet 07/01/16 Problem List - Problems (1) Acute head trauma Code(s): S09.90XA - UNSPECIFIED INJURY OF HEAD, INITIAL ENCOUNTER Qualifiers: Encounter type: initial encounter Qualified Code(s): S09.90XA - Unspecified injury of head, initial encounter (2) Closed fracture of single pubic ramus of pelvis Code(s): S32.509A - UNSP FRACTURE OF UNSP PUBIS, INIT ENCNTR FOR CLOSED FRACTURE Qualifiers: Encounter type: initial encounter Laterality: right Qualified Code( s): S32.501A - Unspecified fracture of right pubis, initial encounter for closed fracture (3) Dehydration Code(s): E86.0 - DEHYDRATION (4) Dementia Code(s): F03.90 - UNSPECIFIED DEMENTIA WITHOUT BEHAVIORAL DISTURBANCE (5) HTN (hypertension) Code(s): I10 - ESSENTIAL (PRIMARY) HYPERTENSION (6) Parkinson disease Code(s): G20 - PARKINSON'S DISEASE This patient is new to me today: No Emergency Visit: Yes ED Registration Date: 06/25/16 Care time: The patient presented to the Emergency Department on the above date and was hospitalized for further evaluation of their emergent condition. Critical Care patient: No - Discharge Referral Referred to [facility] Yes Physician Referral: Evan Villaseñor MD ([facility])
== END 2016-07-01 15:27 | DRG 535 ==
LOC: JER 22:27 → JERBED 06-25 02:50 → OBSVTOIN 06-25 15:00 → J8W 06-25 15:35
PROVIDERS: ADMIT Internal Medicine; ATTEND Internal Medicine
DX: S32.511A Fracture of superior rim of right pubis, initial encounter for closed fracture (principal); E43 Unspecified severe protein-calorie malnutrition; E41 Nutritional marasmus; Z68.1 Body mass index [BMI] 19.9 or less, adult; N17.9 Acute kidney failure, unspecified; S00.11XA Contusion of right eyelid and periocular area, initial encounter; S00.83XA Contusion of other part of head, initial encounter; W18.39XA Other fall on same level, initial encounter; Y92.000 Kitchen of unspecified non-institutional (private) residence as the place of occurrence of the external cause; I10 Essential (primary) hypertension; E78.5 Hyperlipidemia, unspecified; G20 Parkinson's disease; F02.80 Dementia in other diseases classified elsewhere, unspecified severity, without behavioral disturbance, psychotic disturbance, mood disturbance, and anxiety; E86.0 Dehydration; K59.00 Constipation, unspecified; R00.0 Tachycardia, unspecified
CPT/HCPCS: 36415; 70450-TC; 71010-TC; 72125-TC; 73523-TC; 74000-TC; 80048; 80053; 81003; 81015; 82550; 82553; 84484; 85025; 85027; 85610; 86850; 86900; 86901; 87040; 87086; 93005; 93010; 97116-GP; 97161-GP; 99285-25; G0378